=== PATIENT | male | born 1960 | race Caucasian/White ===

== ENCOUNTER 2023-03-04 22:16 | Emergency (ER) | payer OTHER ==
[~2023-03-04] VITALS: Ht 177.8 cm; Wt 93.0 kg
[~2023-03-04 22:16] MED LIST: HYDR1TAB PO
[2023-03-04] MEDS ORDERED: LISI5TAB20 PO (22:23)
[2023-03-04 22:44] LABS: BASOPHILS # (AUTO) 0.1 10^3/uL (0.0-0.1); BASOPHILS % (AUTO) 1 % (0-10)
[2023-03-04 22:46] LABS: EOSINOPHILS # (AUTO) 0.2 10^3/uL (0.0-0.3); EOSINOPHILS % (AUTO) 2 % (0-10); HEMATOCRIT 53 % (40-54); HEMOGLOBIN 19.1 g/dL (13.3-17.7); LYMPHOCYTES # (AUTO) 2.4 10^3/uL (1.0-4.0); LYMPHOCYTES % (AUTO) 26 % (12-44); MEAN CORPUSCULAR HEMOGLOBIN 37 pg (25-34); MEAN CORPUSCULAR HGB CONC 36 g/dL (32-36); MEAN CORPUSCULAR VOLUME 104 fL (80-99); MEAN PLATELET VOLUME 9.4 fL (9.0-12.2); MONOCYTES # (AUTO) 0.6 10^3/uL (0.0-1.0); MONOCYTES % (AUTO) 7 % (0-12); NEUTROPHILS # (AUTO) 5.8 10^3/uL (1.8-7.8); NEUTROPHILS % (AUTO) 63 % (42-75); PLATELET COUNT 150 10^3/uL (130-400); WHITE BLOOD COUNT 9.2 10^3/uL (4.3-11.0)
[2023-03-04 22:51] LABS: ALBUMIN 4.3 GM/DL (3.2-4.5); POTASSIUM 3.7 MMOL/L (3.6-5.0)
[2023-03-04 22:52] LABS: CLARITY,URINE CLEAR; COLOR,URINE YELLOW; PH,URINE 5.5 (5-9)
[2023-03-04 22:53] LABS: BACTERIA,URINE TRACE /HPF; BILIRUBIN,URINE NEGATIVE (NEGATIVE); GLUCOSE, URINE (UA) NEGATIVE (NEGATIVE); KETONES,URINE NEGATIVE (NEGATIVE); LEUKOCYTE ESTERASE ,URINE NEGATIVE (NEGATIVE); NITRITE,URINE NEGATIVE (NEGATIVE); PROTEIN,URINE NEGATIVE (NEGATIVE); SQUAMOUS EPITHELIAL CELL,UR 0-2 /HPF; WBC,URINE 0-2 /HPF
[2023-03-04 22:55] LABS: BILIRUBIN,TOTAL 0.9 MG/DL (0.1-1.0)
[2023-03-04 22:57] LABS: CREATININE SERUM 0.8 MG/DL (0.60-1.30)
--- NOTE | 2023-03-04 23:02 | ED Abdominal Pain ---
General Chief Complaint: Abdominal/GI Problems Stated Complaint: BLOATING Nursing Triage Note: sharp ruq abdominal pain/bloating 1hr after eating. Source of Information: Patient History of Present Illness Date Seen by Provider: Mar 04, 2023 Time Seen by Provider: 22:29 Initial Comments PT ARRIVES VIA POV FROM HOME PT STATES THAT HE ATE DINNER AROUND 1999 TONIGHT--ROAST, POTATOES/CARROTS/CELERY--MADE AT HOME ABOUT AN HOUR AFTER EATING, HE BEGAN TO HAVE GENERALIZED ABDOMINAL BLOATING AND RUQ PAIN NO NAUSEA/VOMITING. HAD NORMAL BM TODAY NO URINARY SYMPTOMS NO FEVER NO RESPIRATORY SYMPTOMS NO CHEST PAIN TOOK ALEVE X 1 WITHOUT RELIEF NO HISTORY OF SIMILAR NO PRIOR ABDOMINAL SURGERIES OR GI/ PROBLEMS NO PRIOR SURGERIES OF ANY KIND PT HAS HTN PT SMOKES > 1 PPD, HE DRINKS "1 DRINK" EVERY DAY, DENIES DRUG USE. DID HAVE "1 DRINK" TONIGHT PCP: MIKEL Allergies and Home Medications Allergies Coded Allergies: No Known Drug Allergies (Unverified , 03/04/23) Patient Home Medication List Home Medication List Reviewed: Yes Hydrocodone Bit/Acetaminophen (Vicodin 5-500 Tablet) 1 Each Tablet, 1 EACH PO Q4HR PRN Prescribed by: SARAI PERERA MD on 11/13/09 1541 Hydrocodone/Acetaminophen (Hydrocodone-Acetamin 5-325 mg) 5 Mg-325 Mg Tablet, 1 EACH PO Q4-6 HOURS PRN for PAIN Prescribed by: ELIJAH WILSON on 03/05/23151 Ketorolac Tromethamine (Ketorolac Tromethamine) 10 Mg Tablet, 10 MG PO Q6H Prescribed by: ELIJAH WILSON on 03/05/23151 Lisinopril (Lisinopril) 5 Mg Tablet, Unknown Dose PO DAILY, (Reported) Entered as Reported by: JOSE RAFAEL ACE on 03/04/232222 Last Action: New Order Ondansetron (Ondansetron Odt) 8 Mg Tab.rapdis, 8 MG PO Q6H Prescribed by: ELIJAH WILSON on 03/05/23151 Tamsulosin HCl (Flomax) 0.4 Mg Cap, 0.4 MG PO DAILY Prescribed by: ELIJAH WILSON on 03/05/23151 Review of Systems Review of Systems Constitutional: no symptoms reported Respiratory: No Symptoms Reported Cardiovascular: No Symptoms Reported Gastrointestinal: See HPI, Abdominal Pain; Denies Diarrhea, Denies Nausea, Denies Vomiting Genitourinary: No Symptoms Reported Musculoskeletal: no symptoms reported Skin: no symptoms reported Psychiatric/Neurological: No Symptoms Reported Endocrine: No Symptoms Reported Hematologic/Lymphatic: No Symptoms Reported Past Xkqfvqa-[id number]-Cfocso Hx Patient Social History Tobacco Use?: Yes Tobacco type used: Cigarettes Smoking Status: Current Everyday Smoker Substance use?: No Alcohol Use?: Yes Alcohol type: Hard Liquor Alcohol Frequency: Daily Pt feels they are or have been: No Past Medical History Surgery/Hospitalization HX: htn Surgeries: Yes (COLONOSCOPY / POLYPECTOMY 08/2012) Respiratory: No Cardiac: Yes Hypertension Neurological: No Genitourinary: No Gastrointestinal: Yes (COLONOSCOPY / POLYPECTOMY 08/2012) Polyps Musculoskeletal: No Endocrine: No HEENT: Yes (GLASSES) Cancer: No Psychosocial: No Integumentary: No Family Medical History SOCIAL HISTORY: -SMOKES > 1 PPD -ETOH--DRINKS DAILY/HARD LIQUOR -DRUGS-DENIES USE Physical Exam Vital Signs Vital Signs - First Documented 03/04/23 22:19 Temp 36.8 Pulse 85 Resp 16 B/P (MAP) 157/95 (115) Pulse Ox 95 O2 Delivery Room Air Capillary Refill : Less Than 3 Seconds Height/Weight/BMI Height: '" Weight: lbs. oz. kg; 29.00 BMI Method:Stated General Appearance: WD/WN, no apparent distress, other (DOES NOT APPEAR ILL OR TO BE IN ANY DISCOMFORT OR DISTRESS. SITTING IN RECLINER, WITH ONE LEG CROSSED OVER THE OTHER KNEE, PLAYING/TEXTING ON PHONE. + ODOR OF ETOH. SPEECH CLEAR, GAIT STEADY) HEENT: PERRL/EOMI; No scleral icterus (R), No scleral icterus (L) Neck: normal inspection Respiratory: normal breath sounds, no respiratory distress, no accessory muscle use Cardiovascular: regular rate, rhythm, no murmur Gastrointestinal: normal bowel sounds, non tender, soft, no organomegaly, no pulsatile mass; No distended, No guarding, No rebound, No tenderness, No hernia, No mass Extremities: normal inspection Back: normal inspection, no CVA tenderness Neurologic/Psychiatric: manager concrete II-XII nml as tested, no motor/sensory deficits, alert, normal mood/affect, oriented x 3 Skin: normal color, warm/dry; No rash Progress/Results/Core Measures Results/Orders Lab Results Laboratory Tests Test 03/04/23 22:32 03/04/23 22:34 Range/Units Urine Color YELLOW Urine Clarity CLEAR Urine pH 5.5 5-9 Urine Specific [place] 1.025 H 1.016-1.022 Urine Protein NEGATIVE NEGATIVE Urine Glucose (UA) NEGATIVE NEGATIVE Urine Ketones NEGATIVE NEGATIVE Urine Nitrite NEGATIVE NEGATIVE Urine Bilirubin NEGATIVE NEGATIVE Urine Urobilinogen 0.2 < = 1.0 MG/DL Urine Leukocyte Esterase NEGATIVE NEGATIVE Urine RBC (Auto) TRACE H NEGATIVE Urine RBC NONE /HPF Urine WBC 0-2 /HPF Urine Squamous Epithelial Cells 0-2 /HPF Urine Crystals NONE /LPF Urine Leucine Crystals /LPF Urine Bacteria TRACE /HPF Urine Casts NONE /LPF Urine Mucus NEGATIVE /LPF Urine Culture Indicated NO Urine Opiates Screen NEGATIVE NEGATIVE Urine Oxycodone Screen NEGATIVE NEGATIVE Urine Methadone Screen NEGATIVE NEGATIVE Urine Propoxyphene Screen NEGATIVE NEGATIVE Urine Barbiturates Screen NEGATIVE NEGATIVE Ur Tricyclic Antidepressants Screen NEGATIVE NEGATIVE Urine Phencyclidine Screen NEGATIVE NEGATIVE Urine Amphetamines Screen NEGATIVE NEGATIVE Urine Methamphetamines Screen NEGATIVE NEGATIVE Urine Benzodiazepines Screen NEGATIVE NEGATIVE Urine Cocaine Screen NEGATIVE NEGATIVE Urine Cannabinoids Screen NEGATIVE NEGATIVE Serum Alcohol 173 H <10 MG/DL White Blood Count 9.2 4.3-11.0 10^3/uL Red Blood Count 5.11 4.30-5.52 10^6/uL Hemoglobin 19.1 H 13.3-17.7 g/dL Hematocrit 53 40-54 % Mean Corpuscular Volume 104 H 80-99 fL Mean Corpuscular Hemoglobin 37 H 25-34 pg Mean Corpuscular Hemoglobin Concent 36 32-36 g/dL Red Cell Distribution Width 12.4 10.0-14.5 % Platelet Count 150 130-400 10^3/uL Mean Platelet Volume 9.4 9.0-12.2 fL Immature Granulocyte % (Auto) 1 % Neutrophils (%) (Auto) 63 42-75 % Lymphocytes (%) (Auto) 26 12-44 % Monocytes (%) (Auto) 7 0-12 % Eosinophils (%) (Auto) 2 0-10 % Basophils (%) (Auto) 1 0-10 % Neutrophils # (Auto) 5.8 1.8-7.8 10^3/uL Lymphocytes # (Auto) 2.4 1.0-4.0 10^3/uL Monocytes # (Auto) 0.6 0.0-1.0 10^3/uL Eosinophils # (Auto) 0.2 0.0-0.3 10^3/uL Basophils # (Auto) 0.1 0.0-0.1 10^3/uL Immature Granulocyte # (Auto) 0.1 0.0-0.1 10^3/uL Percent Immature Platelet Fraction 3.8 0.0-7.6 % Sodium Level 143 135-145 MMOL/L Potassium Level 3.7 3.6-5.0 MMOL/L Chloride Level 109 H 98-107 MMOL/L Carbon Dioxide Level 21 21-32 MMOL/L Anion Gap 13 5-14 MMOL/L Blood Urea Nitrogen 9 7-18 MG/DL Creatinine 0.80 0.60-1.30 MG/DL Estimat Glomerular Filtration Rate 99 BUN/Creatinine Ratio 11 Glucose Level 127 H 70-105 MG/DL Calcium Level 9.0 8.5-10.1 MG/DL Corrected Calcium 8.8 8.5-10.1 MG/DL Total Bilirubin 0.9 0.1-1.0 MG/DL Aspartate Amino Transf (AST/SGOT) 35 H 5-34 U/L Alanine Aminotransferase (ALT/SGPT) 44 0-55 U/L Alkaline Phosphatase 69 40-136 U/L Total Protein 7.0 6.4-8.2 GM/DL Albumin 4.3 3.2-4.5 GM/DL Amylase Level 51 25-125 U/L Lipase 33 8-78 U/L My Orders Orders - ELIJAH WILSON DO Ed Iv/Invasive Line Start (03/04/23 22:29) Amylase (03/04/23 22:29) Cbc With Automated Diff (03/04/23 22:29) Comprehensive Metabolic Panel (03/04/23 22:29) Lipase (03/04/23 22:29) Ua Culture If Indicated (03/04/23 22:29) Ct Abdomen/Pelvis W (03/04/23 22:29) Alcohol (03/04/23 22:55) Drug Screen Stat (Urine) (03/04/23 22:55) Iohexol Injection (Omnipaque 350 Mg/Ml 1 (03/05/23 00:00) Received Contrast (Hold Metformin- Contr (03/05/23 00:00) Sodium Chloride Flush (Catheter Flush Sy (03/05/23 00:00) Ns (Ivpb) 100 Ml (Sodium Chloride 0.9% 1 (03/05/23 00:00) Ketorolac Injection (Ketorolac Injection (03/05/23 02:00) Tamsulosin Capsule (Flomax Capsule) (03/05/23 02:00) Rx-Hydrocodone/Apap 5-325 Mg (Rx-Vicodin (03/05/23 02:00) Medications Given in ED Vital Signs/I&O 03/04/23 03/05/23 22:19 02:03 Temp 36.8 36.2 Pulse 85 68 Resp 16 18 B/P (MAP) 157/95 (115) 115/80 Pulse Ox 95 99 O2 Delivery Room Air Room Air Blood Pressure Mean: 115 Progress Progress Note : Progress Note VITALS ON ARRIVAL: TEMP 36.8, HR 85, RR 16, BP 157/95, O2 SAT 95% ON ROOM AIR LABS: -CBC WITH HGB 19.1, OTHERWISE NORMAL -CMP NORMAL -AMYLASE/LIPASE NORMAL -UA WITH TRACE BLOOD -UDS NEGATIVE -ETOH 173 CT SCAN SHOWS RIGHT PROXIMAL URETERAL CALCULUS, POSSIBLY 2 STONES. 1.6 CM IN SIZE. WITHOUT SIGNIFICANT HYDRONEPHROSIS SLEPT THROUGH REMAINDER OF ER STAY NO PAIN DURING REMAINDER OF ER STAY VITALS STABLE UNEVENTFUL ER STAY DID GIVE TORADOL PRIOR TO DISMISSAL, AND SENT HOME WITH TAKE HOME PACK OF HYDROCODONE DISCUSSED TEST RESULTS, ANTICIPATED COURSE, SYMPTOMATIC TREATMENT, MEDICATIONS, NEED FOR FOLLOW UP WITH UROLOGIST, RETURN PRECAUTIONS REVIEWED PRIOR RECORDS, SINGLE OUTPT COLONOSCOPY IN 2012 AND SINGLE ER VISIT IN [address] ABDOMEN/PELVIS--PER [facility] VIA FAX AT [phone] -MILD RIGHT HYDRONEPHROSIS DUE TO 1.6 CM STONE ( OR 2 ADJACENT STONES) IN PROXIMAL RIGHT URETER Reviewed: Reviewed by Me Departure Impression Primary Impression: Right ureteral calculus Additional Impression: Daily consumption of alcohol Disposition: HOME, SELF-CARE Condition: Stable Departure-Patient Inst. Decision time for Depature: 01:49 Referrals: [facility] (PCP/Family) Primary Care Physician Patient Instructions: Kidney Stones (DC), Kidney Stone Diet Add. Discharge Instructions: LOTS OF FLUIDS FOLLOW UP WITH UROLOGIST OF CHOICE THIS WEEK--THERE ARE UROLOGY SERVICES IN [place], AND AT [facility] IN [place]--CALL IN THE MORNING TO SCHEDULE AN APPOINTMENT RETURN TO ER IF SYMPTOMS WORSEN All discharge instructions reviewed with patient and/or family. Voiced understanding. Scripts Ondansetron (Ondansetron Odt) 8 Mg Tab.rapdis 8 MG PO Q6H, #10 TAB Prov: ELIJAH WILSON DO 03/05/23 Ketorolac Tromethamine (Ketorolac Tromethamine) 10 Mg Tablet 10 MG PO Q6H for Pain, #15 TAB Prov: ELIJAH WILSON DO 03/05/23 Hydrocodone/Acetaminophen (Hydrocodone-Acetamin 5-325 mg) 5 Mg-325 Mg Tablet 1 EACH PO Q4-6 HOURS PRN for PAIN, #20 TAB Prov: ELIJAH WILSON DO 03/05/23 Tamsulosin HCl (Flomax) 0.4 Mg Cap 0.4 MG PO DAILY, #10 CAP Prov: ELIJAH WILSON DO 03/05/23 ELIJAH WILSON DO Mar 04, 2023 23:02
[2023-03-04 23:13] LABS: AMPHETAMINE SCREEN, URINE NEGATIVE (NEGATIVE); BARBITURATE SCREEN URINE NEGATIVE (NEGATIVE); BENZODIAZEPINES SCREEN URINE NEGATIVE (NEGATIVE); CANNABINOID SCREEN, URINE NEGATIVE (NEGATIVE); COCAINE SCREEN URINE NEGATIVE (NEGATIVE); METHADONE STAT NEGATIVE (NEGATIVE); OPIATE SCREEN URINE NEGATIVE (NEGATIVE); OXYCODONE STAT NEGATIVE (NEGATIVE); PROPOXYPHENE STAT NEGATIVE (NEGATIVE); TRICYCLIC ANTIDEPRESSANTS SCRE NEGATIVE (NEGATIVE)
[2023-03-05] MEDS ORDERED: HOLD METFORMIN - RECEIVED CONTRAST 20 ML VIAL IV SCH
[2023-03-05] MEDS ORDERED: IOHEXOL 350 MG/ML 100 ML (OMNIPAQUE 350) VIAL IV ONE
[2023-03-05] MEDS ORDERED: CATHETER FLUSH 10 ML SYR IV PRN
[2023-03-05] MEDS ORDERED: NS 100 ML (IVPB) BAG IV ONE
[2023-03-05] MEDS ORDERED: TMSL.4C PO (01:52)
[2023-03-05] MEDS ORDERED: KETO10TA PO (01:52)
[2023-03-05] MEDS ORDERED: ACHD5005 PO (01:52)
[2023-03-05] MEDS ORDERED: ONDA8TAB13 PO (01:52)
[2023-03-05] MEDS ORDERED: KETOROLAC INJ 30 MG/ML VIAL IVP ONE (02:00)
[2023-03-05] MEDS ORDERED: TAMSULOSIN 0.4 MG (FLOMAX) CAP PO SCH (02:00)
[2023-03-05 02:03] VITALS: BP 115/80
--- NOTE | 2023-03-05 05:50 | Diagnostic Imaging Report ---
PROCEDURE: CT abdomen and pelvis with contrast. TECHNIQUE: Multiple contiguous axial images were obtained through the abdomen and pelvis after administration of intravenous contrast. Auto Exposure Controls were utilized during the CT exam to meet ALARA standards for radiation dose reduction. All CT scans use one or more of the following dose optimizing techniques: automated exposure control, MA and/or KvP adjustment based on patient size and exam type or iterative reconstruction. INDICATION: 62-year-old male with right upper quadrant abdominal pain with bloating 1 hour after eating. COMPARISONS: None FINDINGS: Lung bases show subpleural and posterior basilar atelectatic infiltrates but no confluent consolidations. Cardiac contour is normal. Coronary calcifications are present. Liver shows some mild grade 1 steatosis. There is no intraparenchymal mass or ductal dilatation. Gallbladder is moderately distended. There is no stones, sludge, wall thickening or pericholecystic fluid. Spleen and GE junction are normal. Stomach and duodenal sweep are unremarkable. Pancreas shows sharp margins. Adrenals are normal. Kidneys appear normal in size, position, and contour. There is some minimal bilateral perinephric stranding. There is mild right hydronephrosis. There is moderate right hydroureter. This right obstructive uropathy is secondary to a coalescence of stones in the proximal ureter with a length of approximately 17 mm with a maximum diameter of 8 mm. Bladder is nondistended. Nonopacified loops of small bowel are grossly unremarkable. There is right-sided fat-containing patent processus vaginalis. On the left, there is a left inguinal hernia containing sigmoid colon. This, however, does not appear to be obstructive in nature, without evidence of incarceration or strangulation. There is normal caliber of the aorta, iliac and femoral arteries with normal origin of the visceral arteries. There are nonaneurysmal calcifications extending from the aorta to the iliac arteries. Bone windows show degenerative changes of lumbosacral spine with multilevel hypertrophic facet changes. There is also anterior bridging osteophytes at the thoracolumbar level IMPRESSION: 1. [id number] right obstructive uropathy secondary to a coalescence of stones in the proximal right ureter with measurements given above. 2. Mild hepatic steatosis. 3. Bilateral patent processus vaginalis with a left inguinal hernia containing sigmoid colon. This does not appear to be incarcerated or strangulated. Additional nonemergent findings as described above. Agree with [facility] report. Dictated by: Dictated on workstation # [id number]
== END 2023-03-05 02:04 | disposition home or self-care (01) ==
LOC: EDUNIT# 22:16 → ER 22:17
DX: N13.2 Hydronephrosis with renal and ureteral calculous obstruction (principal); F10.90 Alcohol use, unspecified, uncomplicated; F17.210 Nicotine dependence, cigarettes, uncomplicated
CPT/HCPCS: 74177; 80053; 80306; 81000; 82150; 83690; 85025; 99284; G0480; 36415; 80320